=== PATIENT | female | born 1955 | race Caucasian/White ===

== ENCOUNTER 2023-11-23 14:50 | Emergency (ER) | payer MEDICARE, BC ==
[~2023-11-23] VITALS: Ht 182.9 cm; Wt 102.1 kg
[2023-11-23] MEDS ORDERED: Meclizine HCl 25 MG Tab PO ONE (15:25)
[2023-11-23] MEDS ORDERED: Lactated Ringer's 1,000 ML IV ONE (15:25)
[2023-11-23 15:51] LABS: Calcium, Ionized (POC) 0.93 mmol/L (1.10-1.46); Chloride (POC) 111 mmol/L (98-108); Creatinine (POC) 0.9 mg/dL (0.6-1.0); Glucose (ISTAT POC) 110 mg/dL (70-99); Potassium (POC) 3.9 mmol/L (3.5-5.5); Sodium (POC) 139 mmol/L (135-148); Total CO2 (POC) 18 mmol/L (21-32)
[2023-11-23] MEDS ORDERED: MECL25 PO (16:43)
== END 2023-11-23 17:32 | disposition home or self-care (01) ==
LOC: ER 14:50
PROVIDERS: Emergency Medicine
DX: R42 Dizziness and giddiness (principal); K21.9 Gastro-esophageal reflux disease without esophagitis; E78.5 Hyperlipidemia, unspecified; Z88.8 Allergy status to other drugs, medicaments and biological substances
CPT/HCPCS: 80047; 85014; 93005; 93010; 96360; 99284-25; A9270; J7120